=== PATIENT | female | born 1950 | race Caucasian/White ===

== ENCOUNTER 2016-11-26 18:33 | Emergency (ER) | payer OTHER ==
[~2016-11-26] VITALS: Ht 165.1 cm; Wt 93.6 kg
[~2016-11-26 18:33] MED LIST: ADVAIR 250-501 EACH IH; ALDACTONE50 MG PO; AMLODIPINE BESYL5 MG PO; ASPIR 8181 M1 PO; ASPIR-LOW81 MG PO; ASPIRIN325 MG PO; ASPIRIN81 M2 PO; Aspirin E.C. PO; BENICAR20 MG PO; CARVEDILOL25 MG PO; CEFTIN500 MG PO; CIPRO500 MG PO; CLONIDINE HCL0.1 MG PO; COREG25 M1 PO; CRESTOR40 MG PO; FEXOFENADINE H180 M1 PO; FEXOFENADINE H180 MG PO; HYDROCHLOROTHIA25 MG PO; LEVOTHROID175 MCG PO; LEVOTHYROXINE112 MCG PO; LEVOTHYROXINE125 MCG PO; LIPITOR40 MG PO; LISINOPRIL-HCT1 EAC3 PO; LISINOPRIL2.5 MG; LISINOPRIL40 MG PO; LIVALO4 MG PO; NIASPAN,SLO-NI500 MG PO; NIASPAN1000 MG PO; NITRO-DUR1 EAC1 TD; NITRO-DUR1 EAC3 TD; NITRO-DUR1 EAC4 TD; NORCO 5/3251 TABLET PO; NORVASC5 MG PO; PLAVIX75 MG PO; PRADAXA150 MG PO; Pradaxa PO; SOTALOL120 MG PO; SOTALOL80 MG PO; SPIRONOLACT/HC1 EACH PO; SPIRONOLACTONE50 MG PO; TAMOXIFEN CITRA20 MG PO; ZANTAC300 MG PO; ZESTORETIC,P1 TABLE2 PO; ZETIA10 MG PO
[2016-11-26 20:24] LABS: MCHC 34.4 G/DL (30.0-36.0); MCV 90.1 FL (83-99); MEAN PLAT.VOLUME 11.4 uM^3 (9.5-12.4); PLATELET COUNT 252 K/uL (156-360); RBC DIS.WIDTH-CV 13.3 % (11.8-14.6); RBC DIS.WIDTH-SD 42.7 % (39-53); RED BLOOD COUNT 4.77 M/uL (3.80-5.20); WHITE BLOOD COUNT 7.9 K/uL (4.1-10.2)
[2016-11-26 20:35] LABS: CHLORIDE 109 mEq/L (99-109); POTASSIUM 2.9 mEq/L (3.7-5.4); SODIUM 142 mEq/L (136-147)
[2016-11-26 20:37] LABS: GLUCOSE 122 mg/dL (70-99)
[2016-11-26 20:38] LABS: ANION GAP 14 MEQ/L (2-14)
[2016-11-26 20:41] LABS: GFR ESTIMATE (CALCULATED) > 59 mL/min/
[2016-11-26 20:42] LABS: UREA NITROGEN (BUN) 16 mg/dL (9-23)
[2016-11-26 21:15] LABS: TROP-I INTERPRETATION NEGATIVE; TROPONIN-I 0.01 ng/mL (0.0-0.30)
[2016-11-26] MEDS ORDERED: K-DUR20 MEQ PO (21:41)
[2016-11-26 22:14] VITALS: BP 167/90
== END 2016-11-26 22:33 | disposition home or self-care (01) ==
LOC: EME 18:33
PROVIDERS: Emergency Medicine
PROC: 5A2204Z Restoration of Cardiac Rhythm, Single (ICD-10-PCS; principal; 2016-11-26)
DX: I48.91 Unspecified atrial fibrillation (principal); I10 Essential (primary) hypertension; E78.5 Hyperlipidemia, unspecified; E03.9 Hypothyroidism, unspecified; Z79.82 Long term (current) use of aspirin; Z79.02 Long term (current) use of antithrombotics/antiplatelets; Z95.1 Presence of aortocoronary bypass graft
CPT/HCPCS: 71010; 80048; 84484; 85027; 93005; 99281; 99285

== ENCOUNTER 2017-01-17 22:55 | Observation (INO) | payer OTHER ==
[~2017-01-17] VITALS: Ht 162.6 cm; Wt 94.5 kg
[~2017-01-17 22:55] MED LIST changes: +K-DUR20 MEQ PO
[2017-01-17 23:55] LABS: HEMATOCRIT 43.5 % (36.0-46.0); MCHC 34.3 G/DL (30.0-36.0); MCV 90.4 FL (83-99); MEAN PLAT.VOLUME 11.4 uM^3 (9.5-12.4); PLATELET COUNT 261 K/uL (156-360); RBC DIS.WIDTH-SD 42.7 % (39-53); RED BLOOD COUNT 4.81 M/uL (3.80-5.20); WHITE BLOOD COUNT 8.7 K/uL (4.1-10.2)
[2017-01-18 00:04] LABS: CHLORIDE 108 mEq/L (99-109); MAGNESIUM 2.3 mg/dL (1.3-2.7); POTASSIUM 3.2 mEq/L (3.7-5.4); SODIUM 142 mEq/L (136-147)
[2017-01-18 00:06] LABS: GLUCOSE 145 mg/dL (70-99)
[2017-01-18 00:07] LABS: ANION GAP 13 MEQ/L (2-14)
[2017-01-18 00:08] LABS: TOTAL BILIRUBIN 0.3 mg/dL (0.0-1.0)
[2017-01-18 00:10] LABS: ALKALINE PHOSPHATASE 106 IU/L (3-129); GFR ESTIMATE (CALCULATED) > 59 mL/min/
[2017-01-18 00:11] LABS: UREA NITROGEN (BUN) 17 mg/dL (9-23)
[2017-01-18 00:15] LABS: TROP-I INTERPRETATION NEGATIVE; TROPONIN-I 0.02 ng/mL (0.0-0.30)
[2017-01-18 03:55] VITALS: BP 169/81
[2017-01-18 06:23] LABS: HEMATOCRIT 41.1 % (36.0-46.0); MCH 31.2 PG (29.0-34.0); MCHC 33.6 G/DL (30.0-36.0); MCV 92.8 FL (83-99); MEAN PLAT.VOLUME 11.9 uM^3 (9.5-12.4); PLATELET COUNT 233 K/uL (156-360); RBC DIS.WIDTH-CV 13.3 % (11.8-14.6); RBC DIS.WIDTH-SD 44.7 % (39-53); RED BLOOD COUNT 4.43 M/uL (3.80-5.20); WHITE BLOOD COUNT 6.3 K/uL (4.1-10.2)
[2017-01-18 06:49] LABS: TROP-I INTERPRETATION NEGATIVE
[2017-01-18 06:55] LABS: ALKALINE PHOSPHATASE 84 IU/L (3-129); ANION GAP 10 MEQ/L (2-14); CHLORIDE 107 MEQ/L (99-109); GFR ESTIMATE (CALCULATED) > 59 mL/min/; SAMPLE HEMOLYSIS CHECK 0; SAMPLE ICTERIC CHECK 0; SAMPLE LIPEMIA CHECK 0; SODIUM 142 MEQ/L (136-147); TOTAL BILIRUBIN 0.5 MG/DL (0.0-1.0); UREA NITROGEN (BUN) 17 mg/dL (9-23)
[2017-01-18 06:57] LABS: GLUCOSE 102 mg/dL (70-99); POTASSIUM 4.1 MEQ/L (3.7-5.4)
[2017-01-18 07:44] VITALS: BP 109/58
[2017-01-18 11:30] VITALS: BP 113/56
[2017-01-18 13:08] LABS: TROP-I INTERPRETATION NEGATIVE; TROPONIN-I 0.28 ng/mL (0.0-0.30)
[2017-01-19 08:28] LABS: Estimated Average Glucose 123 mg/dL (70-123); HEMOGLOBIN A1c (GLYCOHEMOGLOB) 5.9 % HGB (Below 5.7)
== END 2017-01-18 14:55 | disposition home or self-care (01) ==
LOC: EME 22:55 → 5WEST 01-18 02:44 → EDOF 01-18 02:44 → 5WEST 01-18 03:45
PROVIDERS: Emergency Medicine; Internal Medicine
DX: I48.0 Paroxysmal atrial fibrillation (principal); R07.89 Other chest pain; E87.6 Hypokalemia; I25.82 Chronic total occlusion of coronary artery; I25.10 Atherosclerotic heart disease of native coronary artery without angina pectoris; Z95.5 Presence of coronary angioplasty implant and graft; I10 Essential (primary) hypertension; E03.9 Hypothyroidism, unspecified; E78.5 Hyperlipidemia, unspecified; K21.9 Gastro-esophageal reflux disease without esophagitis; Z85.3 Personal history of malignant neoplasm of breast; R73.9 Hyperglycemia, unspecified; E66.9 Obesity, unspecified; Z68.35 Body mass index [BMI] 35.0-35.9, adult
CPT/HCPCS: 71010; 80053; 83036; 83735; 84443; 84484; 85027; 93005; 99281; 99285; G0378; J1815; J7030

== ENCOUNTER 2017-03-03 05:51 | Inpatient (IN) | payer OTHER ==
[~2017-03-03] VITALS: Ht 162.6 cm; Wt 99.7 kg
[2017-03-03 06:19] LABS: BASE EXCESS -1.2 mEq/L (-3 to +3); BICARBONATE 23.6 mEq/L (22-26); CARBOXY HGB 1.4 % (0-5); COMMENTS - BLOOD GASES C+A+; DEVICE NIV; FI02 50 %; METHEMOGLOBIN 1.1 % (0-1.5); MODE SPONT; PCO2 39 mm Hg (35-45); PO2 145 mm Hg (80-100); PRES. SUPPORT 10 CM/H2O; SITE RR; TOTAL RESP RATE 34 resp/min; pH 7.39 (7.35-7.45)
[2017-03-03 06:19] LABS: HEMATOCRIT 45.4 % (36.0-46.0); MCH 30.5 PG (29.0-34.0); MCHC 32.8 G/DL (30.0-36.0); MEAN PLAT.VOLUME 11.2 uM^3 (9.5-12.4); PLATELET COUNT 254 K/uL (156-360); RBC DIS.WIDTH-SD 44.4 % (39-53); RED BLOOD COUNT 4.88 M/uL (3.80-5.20); WHITE BLOOD COUNT 9.4 K/uL (4.1-10.2)
[2017-03-03 06:20] LABS: PEEP 5 CM/H20
[2017-03-03 06:38] LABS: CHLORIDE 107 mEq/L (99-109); POTASSIUM 3.6 mEq/L (3.7-5.4); SODIUM 141 mEq/L (136-147)
[2017-03-03 06:40] LABS: GLUCOSE 152 mg/dL (70-99)
[2017-03-03 06:41] LABS: ANION GAP 11 MEQ/L (2-14)
[2017-03-03 06:44] LABS: GFR ESTIMATE (CALCULATED) > 59 mL/min/
[2017-03-03 06:45] LABS: UREA NITROGEN (BUN) 22 mg/dL (9-23)
[2017-03-03 06:48] LABS: TROP-I INTERPRETATION INDETERMINATE; TROPONIN-I 0.54 ng/mL (0.0-0.30)
[2017-03-03] MEDS ORDERED: CARDIZEM120 MG PO (07:56)
[2017-03-03 08:09] LABS: PROTHROMBIN TIME 10.1 (9.2-11.2)
[2017-03-03 08:10] LABS: PTT 24.5 (25-32)
[2017-03-03 12:45] LABS: TROP-I INTERPRETATION POSITIVE; TROPONIN-I 0.91 ng/mL (0.0-0.30)
[2017-03-03 16:01] VITALS: BP 121/68
[2017-03-03 19:25] LABS: TROP-I INTERPRETATION POSITIVE; TROPONIN-I 0.83 ng/mL (0.0-0.30)
[2017-03-03 19:44] VITALS: BP 108/55
[2017-03-03 23:23] VITALS: BP 109/75
[2017-03-04] VITALS (7 sets, daily range): BP systolic 89–171; BP diastolic 51–92
[2017-03-04 06:33] LABS: ANION GAP 9 MEQ/L (2-14); CHLORIDE 109 MEQ/L (99-109); GFR ESTIMATE (CALCULATED) 53 mL/min/; GLUCOSE 118 mg/dL (70-99); POTASSIUM 3.9 MEQ/L (3.7-5.4); SAMPLE HEMOLYSIS CHECK 0; SAMPLE ICTERIC CHECK 0; SAMPLE LIPEMIA CHECK 0; SODIUM 141 MEQ/L (136-147); UREA NITROGEN (BUN) 28 mg/dL (9-23)
[2017-03-04 07:00] LABS: HEMATOCRIT 33.4 % (36.0-46.0); MCH 30.8 PG (29.0-34.0); MCV 96.3 FL (83-99); RBC DIS.WIDTH-CV 13.4 % (11.8-14.6); RBC DIS.WIDTH-SD 47.8 % (39-53); WHITE BLOOD COUNT 6.9 K/uL (4.1-10.2)
[2017-03-04 07:04] LABS: RED BLOOD COUNT 3.47 M/uL (3.80-5.20)
[2017-03-04 07:08] LABS: MEAN PLAT.VOLUME 11.9 uM^3 (9.5-12.4); PLAT.SUFFICIENCY ADEQUATE
[2017-03-04 07:10] LABS: PLATELET COUNT 163 K/uL (156-360)
[2017-03-04 07:51] LABS: METH RESISTANT S AUREUS PCR NEGATIVE (NEGATIVE); PROBE CHECK PASS; SPECIMEN PROCESSING CONTROL PASS
[2017-03-04 08:47] LABS: IRON 115 MCG/DL (35-150)
[2017-03-04 09:32] LABS: FERRITIN 104 NG/ML (10-291)
[2017-03-04 10:57] LABS: INTERNAL CONTROL VALID? YES
[2017-03-04 12:04] LABS: HEMATOCRIT 34.2 % (36.0-46.0); MCV 96.6 FL (83-99)
[2017-03-04 12:24] LABS: POC NON-PRINT COM 1 ND
[2017-03-05 03:30] VITALS: BP 147/71
[2017-03-05 06:28] LABS: HEMATOCRIT 33.8 % (36.0-46.0); MCH 30.6 PG (29.0-34.0); MCV 95.8 FL (83-99); MEAN PLAT.VOLUME 11.6 uM^3 (9.5-12.4); PLATELET COUNT 165 K/uL (156-360); RBC DIS.WIDTH-CV 13.2 % (11.8-14.6); RBC DIS.WIDTH-SD 46.3 % (39-53); RED BLOOD COUNT 3.53 M/uL (3.80-5.20); WHITE BLOOD COUNT 6.6 K/uL (4.1-10.2)
[2017-03-05 06:50] LABS: ANION GAP 7 MEQ/L (2-14); CHLORIDE 107 MEQ/L (99-109); GFR ESTIMATE (CALCULATED) 53 mL/min/; GLUCOSE 112 mg/dL (70-99); POTASSIUM 4.3 MEQ/L (3.7-5.4); SAMPLE HEMOLYSIS CHECK 0; SAMPLE ICTERIC CHECK 0; SAMPLE LIPEMIA CHECK 0; SODIUM 140 MEQ/L (136-147); UREA NITROGEN (BUN) 28 mg/dL (9-23)
[2017-03-05 07:43] VITALS: BP 178/80
[2017-03-05 09:00] VITALS: BP 146/74
[2017-03-05 11:09] VITALS: BP 130/70
[2017-03-05] MEDS ORDERED: CEFDINIR300 MG PO (12:07)
[2017-03-05] MEDS ORDERED: IMDUR30 MG PO (12:07)
[2017-03-05] MEDS ORDERED: AZITHROMYCIN500 M1 PO (12:07)
== END 2017-03-05 13:07 | disposition home or self-care (01) | DRG 280 ==
LOC: EME → EDBD 05:51 → EME 05:51 → EDSEX 05:51 → EDOF 07:49 → 4EAST 07:49
PROVIDERS: Emergency Medicine; Hospitalist; Nurse Practitioner Adult Health
DX: I21.4 Non-ST elevation (NSTEMI) myocardial infarction (principal); J18.9 Pneumonia, unspecified organism; J98.11 Atelectasis; E66.9 Obesity, unspecified; I25.82 Chronic total occlusion of coronary artery; I25.10 Atherosclerotic heart disease of native coronary artery without angina pectoris; I16.0 Hypertensive urgency; E03.9 Hypothyroidism, unspecified; D64.9 Anemia, unspecified; E78.5 Hyperlipidemia, unspecified; I48.0 Paroxysmal atrial fibrillation; E87.6 Hypokalemia; R06.00 Dyspnea, unspecified; R00.0 Tachycardia, unspecified; R00.1 Bradycardia, unspecified; C50.911 Malignant neoplasm of unspecified site of right female breast; Z98.61 Coronary angioplasty status; Z68.37 Body mass index [BMI] 37.0-37.9, adult; Z79.01 Long term (current) use of anticoagulants; Z79.82 Long term (current) use of aspirin; Z80.7 Family history of other malignant neoplasms of lymphoid, hematopoietic and related tissues; Z80.3 Family history of malignant neoplasm of breast; Z82.49 Family history of ischemic heart disease and other diseases of the circulatory system
CPT/HCPCS: 36600; 71010; 80048; 82272; 82728; 82803; 83540; 83605; 83880; 84466; 84484; 85014; 85018; 85027; 85610; 85730; 87040; 87641; 93005; 94002; 94640; 99202; 99281; 99285; J0456; J0696; J2543; J3370; J7050; S0028

== ENCOUNTER 2018-04-09 19:22 | Emergency (ER) | payer OTHER ==
[~2018-04-09] VITALS: Ht 162.6 cm; Wt 96.2 kg
[~2018-04-09 19:22] MED LIST changes: +AZITHROMYCIN500 M1 PO; +CARDIZEM120 MG PO; +CEFDINIR300 MG PO; +IMDUR30 MG PO
[2018-04-09 20:17] LABS: HEMATOCRIT 42.7 % (36.0-46.0); HEMOGLOBIN 14.3 G/DL (11.9-15.5); MCH 31.2 PG (29.0-34.0); MCHC 33.5 G/DL (30.0-36.0); MCV 93.2 FL (83-99); PLATELET COUNT 225 K/uL (156-360); RBC DIS.WIDTH-CV 13.3 % (11.8-14.6); RBC DIS.WIDTH-SD 45.4 % (39-53); RED BLOOD COUNT 4.58 M/uL (3.80-5.20); WHITE BLOOD COUNT 8.9 K/uL (4.1-10.2)
[2018-04-09 20:30] LABS: CHLORIDE 105 mEq/L (99-109); POTASSIUM 4.5 mEq/L (3.7-5.4)
[2018-04-09 20:31] LABS: SODIUM 141 mEq/L (136-147)
[2018-04-09 20:32] LABS: GLUCOSE 99 mg/dL (70-99)
[2018-04-09 20:36] LABS: CREATININE 0.8 mg/dL (0.6-1.3); GFR ESTIMATE (CALCULATED) > 59 mL/min/
[2018-04-09 20:37] LABS: UREA NITROGEN (BUN) 12 mg/dL (9-23)
[2018-04-09 20:39] LABS: TROP-I INTERPRETATION NEGATIVE; TROPONIN-I 0.03 ng/mL (0.0-0.30)
[2018-04-09 22:07] VITALS: BP 185/98
== END 2018-04-09 22:10 | disposition home or self-care (01) ==
LOC: EME 19:22
DX: J06.9 Acute upper respiratory infection, unspecified (principal); I10 Essential (primary) hypertension; Z85.3 Personal history of malignant neoplasm of breast; Z90.11 Acquired absence of right breast and nipple; Z87.442 Personal history of urinary calculi; E78.5 Hyperlipidemia, unspecified; I25.10 Atherosclerotic heart disease of native coronary artery without angina pectoris; E03.9 Hypothyroidism, unspecified; Z79.82 Long term (current) use of aspirin; Z88.8 Allergy status to other drugs, medicaments and biological substances
CPT/HCPCS: 71046; 80048; 84484; 85027; 93005; 99281; 99283